=== PATIENT | female | born 1965 | race Hispanic/Latino ===

== ENCOUNTER 2017-10-03 10:03 | Emergency (ER) | payer SELFPAY ==
[2017-10-03] MEDS ORDERED: MECLIZINE HCL 25 MG TABLET ONE (10:48)
[2017-10-03] MEDS ORDERED: SODIUM CHLORIDE 0.9% 1000ML 1,000 ML IV ONE (10:49)
[2017-10-03] MEDS ORDERED: ONDANSETRON HCL MDV 20ML 2 MG/ML VIAL ONE (10:49)
[2017-10-03 10:53] LABS: BASOPHILS % (AUTO) 0.5 % (0.0-5.0); EOSINOPHILS % (AUTO) 2.6 % (0.0-8.0); HEMATOCRIT 40.6 % (36-48); LYMPHOCYTES % (AUTO) 18.1 % (21.0-51.0); MEAN CORPUSCULAR HEMOGLOBIN 30.2 pg (27.0-33.0); MEAN CORPUSCULAR HGB CONC 34.5 g/dL (32.0-36.0); MEAN CORPUSCULAR VOLUME 87.4 fL (79-99); MONOCYTES % (AUTO) 8.3 % (3.0-13.0); NEUTROPHILS % (AUTO) 70.5 % (40.0-77.0); PLATELET COUNT (AUTO) 226 K/uL (130-400); RED BLOOD CELL COUNT(AUTO) 4.65 MIL/uL (4.00-5.50); RED CELL DISTRIBUTION WIDTH 14.7 % (11.0-15.5); WHITE BLOOD COUNT (AUTO) 6.6 K/uL (4.8-10.8)
[2017-10-03 11:15] LABS: CREATININE 0.7 mg/dL (0.5-1.5); POTASSIUM 4.1 mmol/L (3.5-5.1)
[2017-10-03 11:20] LABS: ALBUMIN 3.5 g/dL (3.5-5.0); BILIRUBIN,TOTAL 0.4 mg/dL (0.2-1.0); TOTAL PROTEIN, SERUM 8.1 g/dL (6.0-8.3)
[2017-10-03 11:34] LABS: APPEARANCE,URINE Clear (CLEAR); BILIRUBIN,URINE Negative (NEGATIVE); COLOR,URINE Yellow (YELLOW); GLUCOSE, URINE (UA) Negative (NEGATIVE); KETONES,URINE Negative (NEGATIVE); LEUKOCYTE ESTERASE ,URINE Trace (NEGATIVE); NITRATE,URINE Negative (NEGATIVE); OCCULT BLOOD,URINE Negative (NEGATIVE); PH,URINE 7.5 (5.0-8.0); PROTEIN,URINE Negative (NEGATIVE); UROBILINOGEN,URINE 0.2 mg/dL (0.2-1.0)
[2017-10-03 11:51] LABS: BACTERIA,URINE Rare /HPF (None Seen); SQUAMOUS EPITHELIAL CELL,UR Few /HPF (0-2); WBC,URINE 0-1 /HPF (0-1)
== END 2017-10-03 12:55 | disposition home or self-care (01) ==
LOC: EDH 10:03
DX: R42 Dizziness and giddiness (principal); R11.2 Nausea with vomiting, unspecified; J45.909 Unspecified asthma, uncomplicated; Z88.8 Allergy status to other drugs, medicaments and biological substances
CPT/HCPCS: 36415; 70450; 80053; 81001; 85025; 93005; 96361; 96374; 99285; J7030

== ENCOUNTER 2018-11-20 21:24 | Inpatient (IN) | payer OTHER ==
[~2018-11-20] VITALS: Ht 152.4 cm; Wt 108.0 kg
[2018-11-20 21:39] LABS: BASOPHILS % (AUTO) 0.9 % (0.0-5.0); EOSINOPHILS % (AUTO) 5.8 % (0.0-8.0); HEMATOCRIT 39.9 % (36-48); LYMPHOCYTES % (AUTO) 32.9 % (21.0-51.0); MEAN CORPUSCULAR HEMOGLOBIN 29.7 pg (27.0-33.0); MEAN CORPUSCULAR HGB CONC 33.5 g/dL (32.0-36.0); MEAN CORPUSCULAR VOLUME 88.7 fL (79-99); MONOCYTES % (AUTO) 9.8 % (3.0-13.0); NEUTROPHILS % (AUTO) 50.6 % (40.0-77.0); PLATELET COUNT (AUTO) 208 K/uL (130-400); RED CELL DISTRIBUTION WIDTH 14.8 % (11.0-15.5)
[2018-11-20 21:47] LABS: CREATININE 1.1 mg/dL (0.5-1.5); POTASSIUM 3.7 mmol/L (3.5-5.1)
[2018-11-20 21:48] LABS: INR 0.95 (0.85-1.15); PARTIAL THROMBOPLASTIN TIME 26.5 SEC (26.3-35.5)
[2018-11-20 21:57] LABS: ALBUMIN 3.6 g/dL (3.5-5.0); BILIRUBIN,TOTAL 0.3 mg/dL (0.2-1.0); TOTAL PROTEIN, SERUM 8.2 g/dL (6.0-8.3)
[2018-11-20] MEDS ORDERED: SODIUM CHLORIDE 0.9% 1000ML 1,000 ML IV ONE (22:10)
[2018-11-20 23:31] LABS: APPEARANCE,URINE Clear (CLEAR); BILIRUBIN,URINE Negative (NEGATIVE); COLOR,URINE Yellow (YELLOW); GLUCOSE, URINE (UA) Negative (NEGATIVE); KETONES,URINE Negative (NEGATIVE); LEUKOCYTE ESTERASE ,URINE Moderate (NEGATIVE); NITRATE,URINE Negative (NEGATIVE); OCCULT BLOOD,URINE Negative (NEGATIVE); PH,URINE 6.5 (5.0-8.0); PROTEIN,URINE Negative (NEGATIVE)
[2018-11-20 23:38] LABS: AMPHET/METH SCREEN,URINE NEGATIVE (NEGATIVE); BARBITURATE SCREEN, URINE NEGATIVE (NEGATIVE); BENZODIAZEPINES SCREEN,URINE NEGATIVE (NEGATIVE); CANNABINOID SCREEN,URINE NEGATIVE (NEGATIVE); COCAINE SCREEN,URINE NEGATIVE (NEGATIVE); OPIATE SCREEN,URINE NEGATIVE (NEGATIVE); PHENCYCLIDINE SCREEN,URINE NEGATIVE (NEGATIVE)
[2018-11-20 23:40] LABS: BACTERIA,URINE Rare /HPF (None Seen); RBC,URINE None Seen /HPF (0-1); SQUAMOUS EPITHELIAL CELL,UR Moderate /HPF (0-2)
[2018-11-21] MEDS ORDERED: ACETAMINOPHEN 325 MG TAB PO PRN (00:15)
[2018-11-21] MEDS ORDERED: ONDANSETRON ODT 4 MG TAB PO PRN (00:15)
[2018-11-21] MEDS ORDERED: ASPIRIN 325 MG TABLET ONE ×2 (00:46→08:58)
[2018-11-21 06:59] LABS: BASOPHILS % (AUTO) 0.3 % (0.0-5.0); HEMATOCRIT 37.5 % (36-48); LYMPHOCYTES % (AUTO) 30.2 % (21.0-51.0); MEAN CORPUSCULAR HEMOGLOBIN 30.1 pg (27.0-33.0); MEAN CORPUSCULAR HGB CONC 33.9 g/dL (32.0-36.0); MEAN CORPUSCULAR VOLUME 88.8 fL (79-99); MONOCYTES % (AUTO) 9.5 % (3.0-13.0); PLATELET COUNT (AUTO) 177 K/uL (130-400); RED BLOOD CELL COUNT(AUTO) 4.23 MIL/uL (4.00-5.50); WHITE BLOOD COUNT (AUTO) 6.3 K/uL (4.8-10.8)
[2018-11-21 07:44] LABS: CREATININE 0.7 mg/dL (0.5-1.5); POTASSIUM 4.2 mmol/L (3.5-5.1)
[2018-11-21 07:48] LABS: ALBUMIN 3.3 g/dL (3.5-5.0); BILIRUBIN,TOTAL 0.3 mg/dL (0.2-1.0); TOTAL PROTEIN, SERUM 7.4 g/dL (6.0-8.3)
[2018-11-21 08:06] LABS: HEMOGLOBIN A1C 5.7 % (4.0-6.0)
[2018-11-21] MEDS ORDERED: FAMOTIDINE 20MG TAB 20 MG TAB ONE (08:57)
[2018-11-21] MEDS ORDERED: CLOPIDOGREL BISULFATE 75 MG TAB ONE (08:58)
[2018-11-21] MEDS ORDERED: ENOXAPARIN SODIUM 30 MG/0.3 ML SQ ONE (08:58)
--- NOTE | 2018-11-21 11:32 | NUR ---
DYSPHAGIA EVAL COMPLETE. -S/S OF ASPIRATION. RECOMMEND REGULAR, THIN LIQUID DIET; PILLS WHOLE WITH LIQUIDS. PATIENT INFORMATION: Pt IS A 53 Y.O. FEMALE REFERRED FOR A BEDSIDE DYSPHAGIA EVALUATION SECONDARY TO POSSIBLE TIA. Pt COOPERATIVE DURING THE EVALUATION. Pt'S BOYFRIEND AND DAUGHTER AT BEDSIDE AT THE TIME OF THE EVALUATION. Pt CURRENTLY ADMITTED SECONDARY TO POSSIBLE TIA. Pt HAS A PAST MEDICAL HISTORY SIGNIFICANT FOR ASTHMA AND VERTIGO. EVALUATION: SWALLOW FUNCTION AND EFFICIENCY WITHIN FUNCTIONAL LIMITS. ORAL MOTOR STRENGTH, COORDINATION, AND ROM WITHIN FUNCTIONAL LIMITS. LARYNGEAL ELEVATION/EXCURSION STRONG WITH TIMELY PHARYNGEAL RESPONSE. NO OVERT SIGNS OR SYMPTOMS OF ASPIRATION PRESENT AT BEDSIDE. VOCAL QUALITY CLEAR WITH NO THROAT CLEAR OR COUGH RESPONSE PRESENT. RECOMMENDATIONS: 1. REGULAR TEXTURE, THIN LIQUID DIET; PILLS WHOLE WITH LIQUIDS. 2. COMPENSATORY STRATEGIES (PROPHYLAXIS): *SEATED AT 90 DEGREE ANGLE G-CODES SWALLOWING: [id number] Addendum: 11/21/18 at 1135 by SOFIA [facility] Amended: Links added.
--- NOTE | 2018-11-21 11:36 | NUR ---
COGNITIVE EVAL COMPLETE. COGNITIVE-LINGUISTIC ABILITIES WITHIN FUNCTIONAL LIMITS. PATIENT INFORMATION: Pt IS A 53 YEAR OLD MALE REFERRED FOR A COGNITIVE-LINGUISTIC EVALUATION SECONDARY TO DIAGNOSIS OF TIA. Pt COOPERATIVE DURING THE EVALUATION AND SERVED THE PRIMARY INFORMANT FOR MEDICAL AND SOCIAL HISTORY. Pt CURRENTLY ADMITTED SECONDARY TO POSSIBLE TIA. Pt HAS A PAST MEDICAL HISTORY SIGNIFICANT FOR ASTHMA AND VERTIGO. EVALUATION: Pt AAOX3. Pt REQUESTS WANTS AND NEEDS INDEPENDENTLY. Pt INTELLIGIBLE AT 100% ACCURACY TO THE UNFAMILIAR LISTENER. Pt COMMUNICATING AT CONVERSATIONAL LEVEL WITH NO DEFICITS IDENTIFIED AT THIS TIME. Pt COMPLETED COGNITIVE-LINGUISTIC EVALUATION TARGETING: ORIENTATION, ATTENTION/CONCENTRATION, MEMORY (IMMEDIATE, SHORT-TERM AND LONG-TERM), PROBLEM SOLVING, LOGIC/REASONING/INFERENCE, THOUGHT ORGANIZATION, FUNCTIONAL MATH AND TELLING TIME. Pt ABLE TO COMPLETE TASKS WITH CORRECT AND TIMELY ANSWERS TO ALL SECTIONS. G-CODES SPOKEN LANGUAGE EXPRESSION: [id number] Addendum: 11/21/18 at 1138 by VINH BUCKLEY Amended: Links added. Addendum: 11/22/18 at [address] ERROR/CORRECTION: Pt IS A 53 YEAR OLD FEMALE...
[2018-11-21] MEDS: GENTAMICIN SULFATE 0.3% 5ML DROPS OS SCH (12:45)
--- NOTE | 2018-11-21 14:25 | NUR ---
JENNIFER Deleon met with pt and SINCERE Hernandez [phone]. Pt is independent, works, drives, no DME or in home care services. Plan is for home at or Addendum: 11/21/18 at 1426 by PRASANNA MESA Amended: Links added.
[2018-11-21 19:30] VITALS: BP 180/89
[2018-11-21] MEDS ORDERED: HYDRALAZINE HCL 20 MG/ML VIAL IV PRN (20:15)
[2018-11-21] MEDS ORDERED: HYDRALAZINE HCL 20 MG/ML VIAL ONE (21:02)
[2018-11-21 23:25] VITALS: BP 151/85
[2018-11-22] MEDS: ASPIRIN 325 MG TABLET PO SCH ×2 (00:13→10:04)
[2018-11-22] MEDS: FAMOTIDINE 20MG TAB 20 MG TAB PO SCH ×2 (00:13→10:04)
[2018-11-22] MEDS: ENOXAPARIN SODIUM 30 MG/0.3 ML SQ SCH ×2 (00:13→10:03)
[2018-11-22] MEDS: CLOPIDOGREL BISULFATE 75 MG TAB PO SCH ×2 (00:13→10:04)
[2018-11-22] MEDS: GENTAMICIN SULFATE 0.3% 5ML DROPS OS SCH ×6 (00:14→16:45)
[2018-11-22 04:00] VITALS: BP 131/72
[2018-11-22 05:00] LABS: BASOPHILS % (AUTO) 0.4 % (0.0-5.0); EOSINOPHILS % (AUTO) 6.4 % (0.0-8.0); HEMATOCRIT 38.6 % (36-48); LYMPHOCYTES % (AUTO) 24.3 % (21.0-51.0); MEAN CORPUSCULAR HEMOGLOBIN 29.5 pg (27.0-33.0); MEAN CORPUSCULAR HGB CONC 33.1 g/dL (32.0-36.0); MEAN CORPUSCULAR VOLUME 89.1 fL (79-99); MONOCYTES % (AUTO) 9.6 % (3.0-13.0); NEUTROPHILS % (AUTO) 59.3 % (40.0-77.0); NUCLEATED RED BLOOD CELLS 0.1 % (0.0-0.19); PLATELET COUNT (AUTO) 189 K/uL (130-400); RED BLOOD CELL COUNT(AUTO) 4.34 MIL/uL (4.00-5.50); RED CELL DISTRIBUTION WIDTH 14.9 % (11.0-15.5); WHITE BLOOD COUNT (AUTO) 6.8 K/uL (4.8-10.8)
[2018-11-22 05:21] LABS: CREATININE 0.7 mg/dL (0.5-1.5); POTASSIUM 3.8 mmol/L (3.5-5.1)
[2018-11-22 08:00] VITALS: BP 125/75
[2018-11-22 12:00] VITALS: BP 137/86
== END 2018-11-22 17:40 | disposition home or self-care (01) | DRG 69 ==
LOC: EDH 21:24 → EDHIP 21:25 → OBSVTOIN 21:25 → 4BH 11-21 23:33
PROVIDERS: ADMIT Internal Medicine; ATTEND Internal Medicine
DX: G45.9 Transient cerebral ischemic attack, unspecified (principal); Z68.42 Body mass index [BMI] 45.0-49.9, adult; E66.9 Obesity, unspecified; J45.909 Unspecified asthma, uncomplicated; G56.02 Carpal tunnel syndrome, left upper limb; H10.9 Unspecified conjunctivitis; Z91.030 Bee allergy status; Z88.8 Allergy status to other drugs, medicaments and biological substances; Z91.018 Allergy to other foods
CPT/HCPCS: 36415; 70450; 70551; 71045; 80048; 80053; 80061; 80305; 81001; 82550; 82948; 83036; 83874; 83880; 84484; 85025; 85610; 85730; 92522; 92610; 93005; 93306; 93880; G0378; J0360; J1650; J7030

== ENCOUNTER 2019-01-23 12:04 | Emergency (ER) | payer OTHER ==
[2019-01-23] MEDS ORDERED: IBUPROFEN 600 MG TABLET ONE (12:23)
== END 2019-01-23 13:12 | disposition home or self-care (01) ==
LOC: EDH 12:04
DX: S90.111A Contusion of right great toe without damage to nail, initial encounter (principal); J45.909 Unspecified asthma, uncomplicated; Z87.891 Personal history of nicotine dependence; W18.49XA Other slipping, tripping and stumbling without falling, initial encounter; Y93.89 Activity, other specified; Y92.89 Other specified places as the place of occurrence of the external cause; Y99.8 Other external cause status
CPT/HCPCS: 73630

== ENCOUNTER 2020-10-12 21:21 | Emergency (ER) | payer SELFPAY | END 2020-10-12 21:51 | disposition home or self-care (01) | LOC: EDH 21:21 | DX: S80.812A Abrasion, left lower leg, initial encounter (principal); J45.909 Unspecified asthma, uncomplicated; Z88.5 Allergy status to narcotic agent; X58.XXXA Exposure to other specified factors, initial encounter; Y93.89 Activity, other specified; Y92.098 Other place in other non-institutional residence as the place of occurrence of the external cause; Y99.8 Other external cause status | CPT/HCPCS: 99281 ==